=== PATIENT | male | born 1975 | race Caucasian/White ===

== ENCOUNTER 2024-06-29 04:26 | Day surgery (SDC) | payer OTHER ==
[2024-06-28 09:08] VITALS: BMI 28.1
[2024-06-29] MEDS ORDERED: MIDAZOLAM HCL 2 MG/2 ML SINGLE DOSE VIAL ONE (07:30)
[2024-06-29] MEDS ORDERED: DEXTROSE 5%-0.45% SALINE 1,000 ML IV SCH (07:30)
[2024-06-29] MEDS ORDERED: PROPOFOL 20 ML ONE (07:30)
[2024-06-29] MEDS ORDERED: SEVOFLURANE 250 ML BTL ONE (07:30)
[2024-06-29] MEDS ORDERED: METOCLOPRAMIDE HCL INJECTION 10 MG/2 ML VIAL ONE (07:33)
[2024-06-29] MEDS ORDERED: LIDOCAINE HCL 1%, 10 MG/ML (20ML VIAL) ONE (07:34)
[2024-06-29] MEDS ORDERED: PAPAVERINE HCL 30 MG/1 ML 10 ML VIAL NR ONE (07:34)
[2024-06-29] MEDS ORDERED: oxyCODONE HCL 5 MG TABLET PO PRN ×2 (07:39)
[2024-06-29] MEDS ORDERED: LACTATED RINGERS SOLUTION 1,000 ML IV SCH (07:45)
[2024-06-29] MEDS ORDERED: LIDOCAINE HCL/PF 2% SDV 5ML VIAL ONE (07:53)
[2024-06-29] MEDS ORDERED: ceFAZolin SODIUM 1 GM VIAL ONE (08:02)
[2024-06-29] MEDS: LIDOCAINE HCL 1%, 10 MG/ML (50 mL VIAL) INF ONE ×2 (08:14)
[2024-06-29] MEDS ORDERED: KETOROLAC TROMETHAMINE 30 MG/1 ML VIAL ONE (08:39)
[2024-06-29 09:43] VITALS: RESP 16
[2024-06-29] MEDS: ACETAMINOPHEN INJECTION 100 ML ONE (09:48)
[2024-06-29] MEDS: ACETAMINOPHEN 1000 MG/100 ML BAG IVPB PRN (09:48)
[2024-06-29] MEDS ORDERED: ONDANSETRON 4 MG/2 ML VIAL ONE (11:23)
[2024-06-29] MEDS: ONDANSETRON 4 MG/2 ML VIAL IVPUSH PRN (11:27)
[2024-06-29 13:06] VITALS: BP 105/61; PULSE 59; TEMP 97.5
== END 2024-06-29 13:09 | disposition home or self-care (01) ==
LOC: JASU-SURG 04:26
PROVIDERS: ATTEND Urology
PROC: 0VBG0ZZ Excision of Left Spermatic Cord, Open Approach (ICD-10-PCS; principal; 2024-06-29 07:30)
DX: I86.1 Scrotal varices (principal); N46.9 Male infertility, unspecified
CPT/HCPCS: 88304-TC; 94760; J0131